=== PATIENT | male | born 1955 | race Caucasian/White ===

== ENCOUNTER → 2019-11-22 | Outpatient (CLI) | payer BC ==
[~2019-11-22] MED LIST: ASA81BEC PO; CENTRUM SILVER1 EAC4 PO; COLACE100 MG PO; LISINOPRIL-HCT1 EAC1 PO; OMEPRAZOLE 20 M20 M1 PO; PERCOCET 10-321 EACH PO; XARELTO10 MG PO
== END ==
LOC: SJCVCIMAG 09:39
PROVIDERS: ATTEND Internal Medicine Cardiovascular Disease
DX: I11.9 Hypertensive heart disease without heart failure (principal); I49.3 Ventricular premature depolarization; R60.0 Localized edema; E66.9 Obesity, unspecified; Z87.891 Personal history of nicotine dependence; Z79.899 Other long term (current) drug therapy

== ENCOUNTER → 2019-12-04 | Outpatient (CLI) | payer BC ==
[~2019-12-04] VITALS: Ht 190.5 cm; Wt 143.3 kg
[2019-12-04 08:45] VITALS: BP 112/68
[2019-12-04 08:56] LABS: HEMATOCRIT 44.3 % (42.0-52.0); HEMOGLOBIN 15.1 gm/dL (14.0-18.0); MCH 30.1 pg (26.0-34.0); MCHC 34.2 g/dL (28.0-37.0); MCV 88.2 fL (80.0-100.0); RBC 5.02 mil/uL (4.50-6.00); RDW 13.2 % (10.5-14.5); WBC 4.4 thou/uL (4.0-11.0)
[2019-12-04 09:03] LABS: CALCIUM 8.8 mg/dL (8.5-10.1); CREATININE 1.4 mg/dL (0.7-1.3); POTASSIUM 3.7 mmol/L (3.5-5.1)
--- NOTE | 2019-12-04 14:55 | CATHLAB ---
[facility] [place] [place] [address] INVASIVE PROCEDURE REPORT Name: JALIL OBRIEN [id number] Admission: 12/04/19 Attend Phys: Anuel William MD Discharge: Date of : 51 Report #: [id number] THIS REPORT FOR: cc: Dandy White MD, James A. DO Park, Jin S. MD ~ APPROVED REPORT Study performed: 12/04/2019 09:55:08 Patient Details Patient Status: Out-Patient Room #: The patient is a 64 year-old male Event Personnel Anuel William Blunger, Andre Hernandez RN RN, Annie Kohli RTR Monitor, Tonya Weston Monitor, Higinio Avery RTR Scrub, Gallito Dotson RTR X-Ray Tech Procedures Performed Art Access - R femoral artery* Left Heart Cath w/or w/o Coronaries [id number] [facility] Hemostasis with Manual pressure 86798 Initial Mod Sed Same Phys/QHP Gr5y [id number] Mod Sed Same Phys/QHP Ea [id number] Indication Dyspnea, Positive stress test Risk Factors HypercholesterolemiaPhysical Activity, Hypertension Procedure Narrative The Right Groin^ was infiltrated with 1% Lidocaine subcutaneous anesthesia. A PINNACLE 4FR Sheath #[id number] sheath was inserted into the RFA^. Coronary angiography was performed using coronary diagnostic catheters. The right coronary system was accessed and visualized with a JR4 catheter. The left coronary system was accessed and visualized with a JL4 catheter. The left ventricle was accessed and visualized with a JR4 catheter. Hemostasis was obtained with manual pressure following sheath removal without any complications. The patient tolerated the procedure well and there were no complications associated with the procedure. There was no hematoma. [facility] [address] [place] [address] INVASIVE PROCEDURE REPORT Name: JALIL OBRIEN Room #: REG [facility]#: [id number] Admission: 12/04/19 Attend Phys: Anuel William MD Discharge: Date of : 51 Report #: [id number] Intraoperative Conscious Sedation Sedation start time: 10:24 Case end Time: 10:49 Fentanyl 100 mcg Versed 22 mg Fluoro Time: 2.13 minutes Dose: DAP 5406.00 cGycm2 780 mGy Contrast Type and Amount: Visipaque 25 ml Coronary Angiography The patient's coronary anatomy is right dominant. Diagnostic Cath Left Main The left main artery is a patent vessel with minimal luminal irregularities in the midsegment. LAD The LAD is a patent vessel, traverses the anterior wall and terminates at the apex. There are no flow-limiting lesions. Diagonal 1 Originates from the proximal segment of the LAD and divides into 2 branches. Appears angiographically normal. Circumflex There is mild disease in the proximal segment, less than 10%. OM1 This is a small caliber vessel, patent with no flow-limiting lesions. OM2 This is a moderate-sized caliber vessel, patent with no flow-limiting lesions. Divides into 2 branches. Right Coronary The RCA is a dominant vessel with mild disease in the midsegment, 20%. R PDA This is a moderate-sized caliber vessel, patent with no flow-limiting lesions. RPLV This is a moderate-sized caliber vessel, patent with no flow-limiting lesions. Left Ventriculography Left Ventriculography was not performed. Ejection Fraction was 55-60% based off patient's Nuclear Cardiac Stress Test. An LVEDP was measured and there is no gradient across the outflow tract. Hemodynamics The aortic pressure is 94/61 mmHg with a mean of 74 mmHg. The left ventricular pressure is 105/7 mmHg with a mean of mmHg. The left ventricular end diastolic pressure is 19 mmHg. Conclusion 1. 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 [address] [address] INVASIVE PROCEDURE REPORT Name: JALIL OBRIEN Room #: REG [facility]#: [id number] Admission: 12/04/19 Attend Phys: Anuel William MD Discharge: Date of : 51 Report #: [id number] 2. Normal LV systolic function. 3. Recommend guideline directed medical therapy. <ELECTRONICALLY SIGNED> By: Anuel William MD 12/04/19 1455 54 54 Anuel William MD /INF
--- NOTE | 2019-12-04 15:40 | EKG ---
[facility] [place] [address] ELECTROCARDIOGRAM REPORT Name: JALIL OBRIEN Room #: REG [facility]#: [id number] Admission: 12/04/19 Attend Phys: Anuel William MD Discharge: Date of : 51 Report #: [id number] THIS REPORT FOR: cc: Dandy White MD, James A. DO Lundgren, Craig H. MD [facility] ~ THIS REPORT FOR: //name// [facility] Test Date: 2019-12-04 Test Time: 08:48:28 Pat Name: JALIL OBRIEN Department: Room: Gender: Woods Manager: MECHE : 1955 Requested By: Anuel William Order Number: [id number] MD: Foster Townsend Measurements Intervals [place] Rate: 69 P: 39 MI: 193 QRS: 5 QRSD: 100 T: 18 QT: 380 QTc: 407 Interpretive Statements Sinus rhythm Normal tracing Compared to ECG 03/24/2015 12:52:35 No significant changes Electronically Signed On 12-04-2019 15:39:53 CDT by Foster Townsend [email or web address] <ELECTRONICALLY SIGNED> By: Foster Townsend MD, FACC 12/04/19 1539 0848 [id number] Foster Townsend MD, [facility] /EPI
== END | disposition home or self-care (01) ==
LOC: CATH 06:59
PROVIDERS: ATTEND Internal Medicine Cardiovascular Disease
DX: R94.39 Abnormal result of other cardiovascular function study (principal); R06.00 Dyspnea, unspecified; I25.10 Atherosclerotic heart disease of native coronary artery without angina pectoris; I10 Essential (primary) hypertension; E78.00 Pure hypercholesterolemia, unspecified; K21.9 Gastro-esophageal reflux disease without esophagitis; Z98.890 Other specified postprocedural states; Z79.899 Other long term (current) drug therapy; Z87.442 Personal history of urinary calculi; Z79.82 Long term (current) use of aspirin

== ENCOUNTER → 2021-06-12 | Outpatient (CLI) | payer OTHER | LOC: RAD 11:34 | PROVIDERS: ATTEND Family Medicine | DX: M16.12 Unilateral primary osteoarthritis, left hip (principal); M25.752 Osteophyte, left hip; M25.552 Pain in left hip ==